=== PATIENT | female | born 1980 | race Caucasian/White ===

== ENCOUNTER 2020-10-22 14:20 | Emergency (ER) | payer OTHER, MEDICAID ==
[~2020-10-22] VITALS: Ht 157.5 cm; Wt 63.5 kg
[2020-10-22] MEDS ORDERED: COZAAR 25 MG TA25 M1 PO (14:33)
[2020-10-22] MEDS ORDERED: CLONIDINE HCL0.1 M1 PO (14:34)
[2020-10-22 15:03] LABS: ABSOLUTE LYMPHOCYTES 1.1 thou/uL (0.8-5.3); ABSOLUTE MONOCYTES 0.2 thou/uL (0.0-1.2); ABSOLUTE NEUTROPHILS 1.6 thou/uL (1.6-8.1); EOSINOPHILS 0.8 %; HEMATOCRIT 39.7 % (37.0-47.0); HEMOGLOBIN 13.3 gm/dL (12.0-15.0); LYMPHOCYTES 36.2 %; MCH 27.1 pg (26.0-34.0); MCHC 33.5 g/dL (28.0-37.0); MCV 80.8 fL (80.0-100.0); MONOCYTES 7.6 %; MPV 9.1 fl. (7.2-11.1); NUCLEATED RBCS 0 /100WBC; PLATELET COUNT* 267 thou/uL (150-400); POLYS 54.4 %; RBC 4.91 mil/uL (4.20-5.00); RDW-CV 13.1 % (10.5-14.5)
[2020-10-22 15:19] LABS: CALCIUM 9.3 mg/dL (8.5-10.1); CREATININE 0.7 mg/dL (0.6-1.3); POTASSIUM 4.3 mmol/L (3.5-5.1)
[2020-10-22 15:40] LABS: ALBUMIN 4.4 g/dL (3.4-5.0); MAGNESIUM 2.1 mg/dL (1.8-2.4); TOTAL BILIRUBIN 0.4 mg/dL (<0.1-1.0); TOTAL PROTEIN 7.3 g/dL (6.4-8.2)
[2020-10-22 16:28] VITALS: BP 152/101
--- NOTE | 2020-10-23 14:11 | EKG ---
[place] [address] ELECTROCARDIOGRAM REPORT Name: AVI PADRON Room: [facility]#: [id number] Admission: 10/22/20 Attend Phys: Discharge: 10/22/20 Date of : 80 Date of Service: 10/22/20 1436 Report #: [id number] THIS REPORT FOR: //name// [facility] ED Test Date: 2020-10-22 Test Time: 14:36:54 Pat Name: AVI MURPHY Department: Room: Gender: Digital Imager: [facility] : 1980 Requested By: Ita Ray Order Number: [id number] MD: Ray Eden Measurements Intervals [place] Rate: 68 P: -2 MI: 129 QRS: 46 QRSD: 94 T: 35 QT: 390 QTc: 415 Interpretive Statements Sinus rhythm RSR' in V1 or V2, right VCD Minimal ST elevation, anterior leads No previous ECG available for comparison Electronically Signed On 10-23-2020 14:11:18 CDT by Ray Eden [email or web address] <ELECTRONICALLY SIGNED> By: Ray Eden MD, [facility] 10/23/20 1411 1436 1436 Ray Eden MD, [facility] /EPI
== END 2020-10-22 16:29 | disposition home or self-care (01) ==
LOC: M.ERS 14:20
PROVIDERS: Nurse Practitioner Family
DX: I10 Essential (primary) hypertension (principal); R07.89 Other chest pain; Z88.8 Allergy status to other drugs, medicaments and biological substances

== ENCOUNTER 2020-11-05 18:44 | Emergency (ER) | payer OTHER, MEDICAID ==
[~2020-11-05] VITALS: Ht 157.5 cm; Wt 47.2 kg
[~2020-11-05 18:44] MED LIST: CLONIDINE HCL0.1 M1 PO; COZAAR 25 MG TA25 M1 PO
[2020-11-05 23:15] VITALS: BP 149/98
== END 2020-11-05 23:15 | disposition left against medical advice (07) ==
LOC: M.ERS 18:44
DX: Z53.21 Procedure and treatment not carried out due to patient leaving prior to being seen by health care provider (principal)